=== PATIENT | male | born 1980 | race American Indian/Alaskan Native ===

== ENCOUNTER 2020-02-14 19:51 | Emergency (ER) | payer SELFPAY ==
[2020-02-14] MEDS ORDERED: SODIUM CHLORIDE 0.9% 1000 ML 1,000 ML IV ONE (20:01)
[2020-02-14] MEDS ORDERED: ONDANSETRON 4 MG/2 ML INJ IV ONE ×2 (20:01→23:10)
[2020-02-14] MEDS ORDERED: MORPHINE 4 MG/1 ML INJ IV ONE ×2 (20:01→23:10)
[2020-02-14 20:24] LABS: Basophils % (Auto) 0.4 % (0.0-1.8); Eosinophils % (Auto) 0.1 % (0.0-4.3); Hemoglobin 15.8 gm/dl (11.8-15.2); Lymphocytes % (Auto) 18.9 % (13.4-35.0); Mean Corpuscular HGB Conc 32 % (32-34); Mean Corpuscular Volume 97 fl (84-94); Monocytes # (Auto) 0.6 K/mm3 (0.0-0.8); Monocytes % (Auto) 5.6 % (0.0-7.3); Platelet Count 228 K/mm3 (140-440); Red Blood Count 5.06 M/mm3 (3.65-5.03); Red Cell Distribution Width 15.3 % (13.2-15.2)
[2020-02-14 20:34] LABS: INR 0.92 (0.87-1.13)
[2020-02-14 20:41] LABS: BUN/Creatinine Ratio 12; Blood Urea Nitrogen 12 mg/dL (9-20); Calcium 9.5 mg/dL (8.4-10.2); Hemolysis Index 32
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
[2020-02-14] MEDS ORDERED: ceFAZolin/NS 1 GM/50 ML 1 GM/50 ML BAG IV ONE (22:00)
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
[2020-02-14 23:45] VITALS: BP 133/76
== END 2020-02-15 00:13 | disposition other institution (70) ==
LOC: ED 19:51
DX: S11.84XA Puncture wound with foreign body of other specified part of neck, initial encounter (principal); X58.XXXA Exposure to other specified factors, initial encounter; Y93.89 Activity, other specified; Y92.89 Other specified places as the place of occurrence of the external cause; Y99.8 Other external cause status
CPT/HCPCS: 36415; 70450; 70498; 72125; 80048; 85025; 85610; 85730; 96361; 96365; 96375; 99291; J0690; J2270; J2405; J7030; Q9967